=== PATIENT | female | born 1990 | race Caucasian/White ===

== ENCOUNTER → 2025-07-09 09:00 | Outpatient (CLI) | payer OTHER, SELFPAY ==
--- NOTE | 2025-07-09 09:01 | DI.RAD.S_ITS ---
PROCEDURE: XR HIP W PEL IF DONE LT 2V
[2025-07-09 10:58] LABS: Free T3, Triiodothyronine Free 4.07 pg/mL (2.77-5.27); Free T4, Direct Thyroxine 1.43 ng/dL (0.78-2.19)
[2025-07-09 11:12] LABS: Thyroid Stimulating Hormone 1.17 uIU/mL (0.47-4.68)
[2025-07-11 14:08] LABS: Anti Thyroglobulin Antibody 3.3 IU/mL (0.0-0.9)
== END ==
PROVIDERS: PCP Student in an Organized Health Care Education/Training Program; Referring Provider Student in an Organized Health Care Education/Training Program; Visit Provider Student in an Organized Health Care Education/Training Program
DX: M25.552 Pain in left hip (principal); E06.3 Autoimmune thyroiditis; E03.9 Hypothyroidism, unspecified
CPT/HCPCS: 36415; 73502; 84439; 84443; 84481; 86376; 86800

== ENCOUNTER → 2025-09-01 10:07 | Outpatient (CLI) | payer OTHER, SELFPAY ==
--- NOTE | 2025-09-01 10:09 | DI.RAD.S_ITS ---
PROCEDURE: FL HIP INJECTION MR/CT LT INDICATIONS: assess for labral tear TECHNIQUE: The indications, alternatives, benefits, risks, and complications of the procedure were explained to the patient. Written informed consent was obtained and placed in the chart. The hip was examined fluoroscopically with the legs fixed in slight internal rotation, and a site for needle placement chosen for entry into the hip joint from an anterior approach. Care was taken to locate the common femoral artery and vein beforehand. The skin was prepped and draped in a sterile fashion, and 1% Lidocaine infiltrated from skin down to joint capsule. A spinal needle was inserted into the joint, and a small amount of iodinated contrast media injected to confirm intra-articular placement of the needle tip. This was followed by approximately 10 mL dilute solution of a gadolinium containing MR contrast agent. The needle was removed and a dressing was applied. The patient was given postprocedural instructions and sent to the MR suite for imaging. COMPARISON: [facility], , MR HIP LT W CON, 09/01/2025, 10:36. FINDINGS: A single fluoroscopic spot image demonstrates intra-articular location of injected iodinated contrast. IMPRESSION: Successful fluoroscopically guided administration of dilute Gadolinium solution into the hip joint for MR arthrogram. Dictated by: Aramis Solano M.D. on 09/01/2025 at 13:39 Approved by: Aramis Solano M.D. on 09/01/2025 at 13:40
--- NOTE | 2025-09-01 10:09 | DI.MRI.S_ITS ---
PROCEDURE: MR HIP LT W CON INDICATIONS: L hip arthrogram left hip pain TECHNIQUE: After the administration of 10 mL of dilute intra-articular Gadolinium contrast, coronal STIR of the bony pelvis; coronal and oblique axial T1 spin echo with fat saturation, axial T2 fast spin echo with fat saturation, sagittal T1 spin echo with and without fat saturation of the involved hip. COMPARISON: None. FINDINGS: Quality: Adequate. Hip: Labrum: Tearing extending from approximately the 2 o'clock to 12 o'clock position.. Cartilage: No focal defect. Joint: Adequately distended by intra-articular gadolinium containing contrast solution. Bone: No fracture. No avascular necrosis. Muscles and tendons: Partial tear and edema at the insertion of the gluteus minimus tendon.. On the right visible on large [id number] there is edema and fluid along the gluteus medius and minimus tendons. Bursa: Trochanteric bursa: Nondistended. Iliopsoas bursa: Nondistended. Other: None. IMPRESSION: Partial tear left gluteus minimus tendon. Suspect partial tear or mild bursitis at the RIGHT gluteus medius tendon. Left labral tear. NOTE: EXAMINATION INCLUDES FINDINGS FROM THE CONTRALATERAL HIP WELL WHICH IS VISIBLE ON THE LARGE FIELD OF VIEW CORONAL SEQUENCE. Dictated by: Aramis Solano M.D. on 09/03/2025 at 10:49 Approved by: Aramis Solano M.D. on 09/03/2025 at 10:54
[2025-09-01] MEDS: LIDOCAINE 1% 20 ML INJ (11:02)
[2025-09-01] MEDS: SODIUM CHLORIDE 0.9 % 20 ML VIAL IV (11:03)
== END ==
PROVIDERS: PCP Student in an Organized Health Care Education/Training Program; Referring Provider Physician Assistant Surgical; Visit Provider Physician Assistant Surgical
DX: S73.102A Unspecified sprain of left hip, initial encounter (principal); S76.012A Strain of muscle, fascia and tendon of left hip, initial encounter; X58.XXXA Exposure to other specified factors, initial encounter
CPT/HCPCS: 27093; 73525; 73722; A9579; Q9967